=== PATIENT | male | born 1965 | race African-American/Black ===

== ENCOUNTER 2019-10-22 22:43 | Inpatient (IN) | payer MEDICARE, OTHER ==
[~2019-10-22] VITALS: Ht 180.3 cm; Wt 81.2 kg
[2019-10-22 23:15] VITALS: BP 157/88
--- NOTE | 2019-10-22 23:15 | NUR ---
RN NOTES RECEIVED PT. FROM [facility] DIRECT ADMIT, A/OX3, C/O OF RIGHT SIDED WEAKNESS. ASKED THE PATIENT TO RAISE HIS RIGHT ARM AND PATIENT CAN RAISE IT, NOT IN DISTRESS, DENIES PAIN, PATIENT CAN COMPREHEND BUT IT TAKES TIME TO ANSWER TO ANSWER THE QUESTIONS. BED IN LOW POSITION, CALL LIGHT WITHIN REACH, [id number], CONTINUE TO MONITOR
[2019-10-22 23:30] VITALS: BP 157/77
--- NOTE | 2019-10-23 | NUR ---
RN NOTES INFORMED DR. FLORES THAT PT. FROM [facility] IS ALREADY HERE AND NEEDS ADMISSION ORDERS
--- NOTE | 2019-10-23 00:30 | NUR ---
RN NOTES DR. FLORES GAVE ADMISSION ORDER, ORDER NOTED AND CARRIED OUT
[2019-10-23] MEDS ORDERED: ACETAMINOPHEN 325 MG TABLET PO PRN (01:00)
[2019-10-23] MEDS ORDERED: DEXTROSE 50%-WATER 50 ML DISP.SYRIN IV PRN (01:00)
[2019-10-23] MEDS ORDERED: ONDANSETRON HCL/PF 4 MG/2 ML VIAL IVP PRN (01:00)
[2019-10-23] MEDS ORDERED: Z GUARD REMEDY 2 OZ OINT TP PRN (01:00)
[2019-10-23] MEDS ORDERED: ZOLPIDEM TARTRATE 5 MG TABLET PO PRN (01:00)
[2019-10-23 03:05] LABS: APPEARANCE,URINE CLEAR (CLEAR); BILIRUBIN,URINE NEGATIVE (NEGATIVE); BLOOD, URINE NEGATIVE Ery/uL (NEGATIVE); COLOR,URINE YELLOW (YELLOW); KETONES,URINE NEGATIVE (NEGATIVE); LEUKOCYTE ESTERASE ,URINE NEGATIVE (NEGATIVE); NITRITE, URINE NEGATIVE (NEGATIVE); PH,URINE 5.5 (5.0-8.0); PROTEIN,URINE TRACE mg/dl (NEGATIVE); UGLUCOSE NEGATIVE (NEGATIVE); UROBILINOGEN,URINE 0.2 EU/dL (0.2)
[2019-10-23 03:14] LABS: BACTERIA,URINE Rare /HPF (None Seen); RBC,URINE 0-2 /HPF (0-2); SQUAMOUS EPITHELIAL CELL,UR Rare /HPF (None Seen); WBC,URINE 0-2 /HPF (0-3)
[2019-10-23] MEDS ORDERED: TAMS-12 PO (03:54)
[2019-10-23] MEDS ORDERED: [UNRECOGNIZED DRUG - CODE] PO (03:54)
[2019-10-23] MEDS ORDERED: CLOP75TA15 PO (03:54)
[2019-10-23] MEDS ORDERED: SERT100T PO (03:54)
[2019-10-23] MEDS ORDERED: CHOL100040 PO (03:54)
[2019-10-23] MEDS ORDERED: ATOR80TA PO (03:54)
[2019-10-23] MEDS ORDERED: GLIP5TAB13 PO (03:54)
[2019-10-23] MEDS ORDERED: AMLO10TA4 PO (03:54)
[2019-10-23] MEDS ORDERED: CHOL100040 (03:54)
[2019-10-23 04:00] VITALS: BP 151/95
[2019-10-23 07:28] LABS: THYROID STIMULATING HORMONE 0.706 uIU/mL (0.358-3.74)
[2019-10-23] MEDS: PANTOPRAZOLE 40 MG TABLET.DR PO SCH (07:30)
[2019-10-23] MEDS: BLOOD SUGAR DIAGNOSTIC 1 EACH STRIP IN SCH ×4 (07:30→22:09)
--- NOTE | 2019-10-23 07:30 | NUR ---
CHECK PROCESSOR NOTES NURSING SWALLOW EVAL DONE WITHOUT S/S OF COMPLICATIONS. PATIENT ALERT AND ORIENTED X4. FOLLOWS COMMANDS. SPEECH SLOW BUT CLEAR.
--- NOTE | 2019-10-23 07:45 | NUR ---
MS RN NOTES RECEIVED PATIENT IN BED ALERT AND AWAKE ORIENTED X4. NO SOB. ON TELEMONITORING SB: 59. PATIENT ABLE TO RESPOND WITH CLEAR SPEECH BUT SLOW. ABLE TO VERBALIZE NEEDS. CALL LIGHT WITHIN REACH. BED IN LOWEST POSITION, LOCKED.
[2019-10-23] MEDS: ASPIRIN EC 81 MG TABLET.DR PO SCH (08:42)
[2019-10-23 09:27] VITALS: BP 156/96
--- NOTE | 2019-10-23 11:44 | NUR ---
GOLF TECHNICIAN NOTES PATIENT OFF UNIT, LEFT FOR MRI VIA GURNEY IN STABLE CONDITION.
--- NOTE | 2019-10-23 12:47 | NUR ---
HOT PLATE PLYWOOD PRESS LABORER NOTES PATIENT RETURNED TO UNIT FROM MRI
[2019-10-23] MEDS: INSULIN REGULAR, HUMAN 100 UNIT/ML 3 ML VIAL SQ PRN ×2 (12:48→17:49)
[2019-10-23] MEDS: SERTRALINE HCL 50 MG TABLET PO SCH (12:50)
[2019-10-23] MEDS: ATORVASTATIN 40 MG TABLET PO SCH (12:51)
[2019-10-23] MEDS: CHOLECALCIFEROL 1,000 UNIT TABLET (VIT D3) PO SCH (12:51)
[2019-10-23] MEDS: AMLODIPINE BESYLATE 10 MG TABLET PO SCH (13:00)
[2019-10-23] MEDS: CLOPIDOGREL BISULFATE 75 MG TABLET PO SCH (13:00)
--- NOTE | 2019-10-23 14:01 | NUR ---
CAROL CONSULT: Rotary Soil Stabilizer Operator conducted a Post Stroke Depression (MPHQ-9) assessment with the pt at bedside. The pt was pleasant, calm, and engaged in the assessment. Per the pt's answers, the pt scored a 0: none-minial. CAROL provided the pt with a resource information packet on empowerment after a stroke. Addendum: 10/23/19 at 1401 by WILLIAM MEDINA guidance services coordinator available for support as needed.
[2019-10-23 16:08] LABS: BASOPHILS % (AUTO) 1.1 % (0.0-2.0); EOSINOPHILS % (AUTO) 5.5 % (0.0-6.0); HEMATOCRIT 34 % (39-51); HEMOGLOBIN 10.9 g/dL (13.5-17.5); LYMPHOCYTES # (AUTO) 1.4 /CMM (0.8-4.8); LYMPHOCYTES % (AUTO) 36.7 % (20.0-44.0); MEAN CORPUSCULAR HGB CONC 32 g/dl (31.0-36.0); MEAN CORPUSCULAR VOLUME 87 fL (80-96); MONOCYTES # (AUTO) 0.3 /CMM (0.1-1.30); MONOCYTES % (AUTO) 8.6 % (2.0-12.0); NEUTROPHILS # (AUTO) 1.9 /CMM (1.8-8.9); NEUTROPHILS % (AUTO) 48.1 % (43.0-81.0); PLATELET COUNT (AUTO) 272 /CMM (150-450); RED BLOOD CELL COUNT(AUTO) 3.96 MIL/uL (4.5-6.0); WHITE BLOOD COUNT (AUTO) 3.9 K/uL (4.3-11.0)
[2019-10-23 16:12] VITALS: BP 136/60
[2019-10-23 16:19] LABS: CALCIUM, SERUM 8.5 mg/dL (8.5-10.1); CREATININE 1.5 mg/dL (0.6-1.3); POTASSIUM 3.4 mmol/L (3.5-5.1)
[2019-10-23] MEDS ORDERED: GADOTERIDOL 279.3 MG/ML VIAL IV ONE (16:28)
--- NOTE | 2019-10-23 19:18 | NUR ---
POUND ATTENDANT NOTES PATIENT RESTING COMFORTABLY IN BED. HOB ELEVATED. NO S/S OF RESPIRATORY DISTRESS. DENIES ANY C/O PAIN NOR DISCOMFORT AT THIS TIME. LEFT ARM # 20 SL INTACT AND PATENT. ABLE TO VERBALIZE NEEDS. SZ PRECAUTIONS OBSERVED. CALL LIGHT WITHIN REACH. IN NO APPARENT DISTRESS.
[2019-10-23 20:00] VITALS: BP 137/87
--- NOTE | 2019-10-23 20:04 | NUR ---
EXPERT WITNESS OPENING NOTES RECEIVED PATIENT IN BED, AWAKE, COOPERATIVE, CONSCIOUS, ELEVATED HEAD OF BED, BREATHING AT ROOM AIR, UNLABORED BREATHING, NO SIGNS OF RESPIRATORY DISTRESS, PJ #20 SL, SIDE RAILS UP.
[2019-10-24] VITALS: BP 154/90
[2019-10-24 04:00] VITALS: BP 145/68
[2019-10-24 06:31] LABS: BASOPHILS # (AUTO) 0.1 /CMM (0.0-0.2); BASOPHILS % (AUTO) 1.4 % (0.0-2.0); EOSINOPHILS % (AUTO) 5.4 % (0.0-6.0); HEMATOCRIT 34 % (39-51); LYMPHOCYTES # (AUTO) 1.8 /CMM (0.8-4.8); LYMPHOCYTES % (AUTO) 43.5 % (20.0-44.0); MEAN CORPUSCULAR HGB CONC 32 g/dl (31.0-36.0); MEAN CORPUSCULAR VOLUME 87 fL (80-96); MONOCYTES # (AUTO) 0.4 /CMM (0.1-1.30); MONOCYTES % (AUTO) 9.4 % (2.0-12.0); NEUTROPHILS # (AUTO) 1.7 /CMM (1.8-8.9); NEUTROPHILS % (AUTO) 40.3 % (43.0-81.0); PLATELET COUNT (AUTO) 251 /CMM (150-450); RED BLOOD CELL COUNT(AUTO) 3.93 MIL/uL (4.5-6.0); WHITE BLOOD COUNT (AUTO) 4.2 K/uL (4.3-11.0)
[2019-10-24] MEDS: BLOOD SUGAR DIAGNOSTIC 1 EACH STRIP IN SCH ×4 (06:33→21:52)
--- NOTE | 2019-10-24 06:46 | NUR ---
SHREDDED FILLER CIGAR MAKER MACHINE CLOSING NOTES ENDORSED PATIENT IN BED, AWAKE, COOPERATIVE, CONSCIOUS, ELEVATED HEAD OF BED, BREATHING AT ROOM AIR, UNLABORED BREATHING, NO SIGNS OF RESPIRATORY DISTRESS, PJ #20 SL, SIDE RAILS UP FOR SAFETY, DUE MEDS GIVEN, TURN AND POSITION EVERY 2 HRS.
[2019-10-24 07:05] LABS: THYROID STIMULATING HORMONE 0.903 uIU/mL (0.358-3.74)
[2019-10-24 07:18] LABS: ALBUMIN 3.3 g/dL (3.4-5.0); BILIRUBIN,TOTAL 0.4 mg/dL (0.2-1.0); CREATININE 1.4 mg/dL (0.6-1.3); MAGNESIUM 1.9 mg/dL (1.8-2.4); PHOSPHORUS 3.2 mg/dL (2.5-4.9); POTASSIUM 3.1 mmol/L (3.5-5.1); TOTAL PROTEIN, SERUM 6.6 g/dL (6.4-8.2)
--- NOTE | 2019-10-24 07:20 | NUR ---
MS RN NOTES RECEIVED PATIENT IN BED ASLEEP, AROUSABLE TO VERBAL AND TACTILE STIMULI. HOB ELEVATED. NO SOB. ON TELEMONITORING SB: [id number]. PJ # 20 SL INTACT AND PATENT. ABLE TO VERBALIZE NEEDS. CALL LIGHT WITHIN REACH. BED IN LOWEST POSITION, LOCKED. BED SIDERAILS UP X2.
--- NOTE | 2019-10-24 07:45 | NUR ---
RANCH HAND SUPERVISOR NOTES ASSISTED PATIENT UP IN BED, BREAKFAST TABLE SET-UP. PATIENT ABLE TO FEED SELF WITHOUT DIFFICULTY. NO SWALLOWING/CHEWING DIFFICULTY OBSERVED DURING MEAL TIME. ASPIRATIONS PRECAUTIONS OBSERVED AT ALL TIMES.
[2019-10-24 08:00] VITALS: BP 168/90
[2019-10-24] MEDS: ASPIRIN EC 81 MG TABLET.DR PO SCH (08:13)
[2019-10-24] MEDS: PANTOPRAZOLE 40 MG TABLET.DR PO SCH (08:13)
[2019-10-24] MEDS: TAMSULOSIN 0.4 MG CAP.SR.24H PO SCH (08:13)
[2019-10-24] MEDS: SERTRALINE HCL 50 MG TABLET PO SCH (08:14)
[2019-10-24] MEDS: ATORVASTATIN 40 MG TABLET PO SCH (08:14)
[2019-10-24] MEDS: CLOPIDOGREL BISULFATE 75 MG TABLET PO SCH (08:14)
[2019-10-24] MEDS: CHOLECALCIFEROL 1,000 UNIT TABLET (VIT D3) PO SCH (08:14)
[2019-10-24] MEDS: AMLODIPINE BESYLATE 10 MG TABLET PO SCH (08:15)
[2019-10-24 09:45] VITALS: BP 139/86
[2019-10-24] MEDS: POTASSIUM CHLORIDE 20 MEQ TAB.PRT.SR PO SCH ×2 (10:13→11:57)
[2019-10-24] MEDS: INSULIN REGULAR, HUMAN 100 UNIT/ML 3 ML VIAL SQ PRN ×3 (12:16→21:51)
[2019-10-24 16:00] VITALS: BP 136/91
[2019-10-24] MEDS ORDERED: ENOXAPARIN SODIUM 40 MG/0.4 ML DISP.SYRIN SQ SCH (17:00)
--- NOTE | 2019-10-24 18:43 | NUR ---
ASSOCIATE MANAGER NOTES PATIENT RESTING COMFORTABLY IN BED WATCHING TV. HOB ELEVATED. NO SOB. DENIES ANY C/O PAIN NOR DISCOMFORT AT THIS TIME. LEFT ARM # 20 SL INTACT AND PATENT. NO CHANGES OBSERVED DURING THE SHIFT. ABLE TO VERBALIZE NEEDS. SZ PRECAUTIONS OBSERVED. CALL LIGHT WITHIN REACH. IN NO APPARENT DISTRESS.
--- NOTE | 2019-10-24 19:51 | NUR ---
MS RN NOTES PATIENT RESTING COMFORTABLY IN BED.NO C/O OF SOB. DENIES ANY C/O PAIN NOR DISCOMFORT AT THIS TIME. PATIENT FOR DISCHARGE. DISCHARGE INSTRUCTIONS AND PACKET GIVEN TO PATIENT. IV ACCES REMOVED WITH CATHETER TIP INTACT. ALL BELONGINGS ACCOUNTED FOR. AMBULATORY WITH STEADY GAIT. IV ACCESS REMOVED WITH CATHETER TIP INTACT. PATIENT LEFT IN STABLE CONDITION. Addendum: 10/24/19 at 1951 by COLIN CAMPBELL RN DOCUMENTATION WRONG ENTRY
[2019-10-24 20:00] VITALS: BP 146/87
[2019-10-24 20:18] LABS: CREATININE, URINE 219.7 MG/DL (30.0-125.0); URINE TOTAL PROTEIN 79.9 mg/dL (0-11.9)
[2019-10-24 20:21] LABS: APPEARANCE,URINE CLEAR (CLEAR); BILIRUBIN,URINE NEGATIVE (NEGATIVE); BLOOD, URINE NEGATIVE Ery/uL (NEGATIVE); COLOR,URINE YELLOW (YELLOW); KETONES,URINE NEGATIVE (NEGATIVE); LEUKOCYTE ESTERASE ,URINE NEGATIVE (NEGATIVE); NITRITE, URINE NEGATIVE (NEGATIVE); PH,URINE 5.5 (5.0-8.0); PROTEIN,URINE 30 mg/dl (NEGATIVE); UGLUCOSE NEGATIVE (NEGATIVE)
[2019-10-24 20:28] LABS: BACTERIA,URINE Few /HPF (None Seen); EOSINOPHIL,URINE None Seen; FINE GRANULAR CASTS,URINE 0-2 /LPF (None Seen); RBC,URINE 0-2 /HPF (0-2); SQUAMOUS EPITHELIAL CELL,UR Few /HPF (None Seen); WBC,URINE 0-2 /HPF (0-3)
--- NOTE | 2019-10-25 05:28 | NUR ---
MS RN CLOSING NOTES: PATIENT IN BED, AWAKE, A/O X4. NO COMPLAIN OF PAIN. NO SOB NOTED. CALL LIGHT WITHIN REACH. BED ALARM ON. HOB AT 35 DEGREES AT ALL TIMES. RESTED THROUGHOUT THE NIGHT.
[2019-10-25] MEDS: BLOOD SUGAR DIAGNOSTIC 1 EACH STRIP IN SCH ×3 (06:36→17:25)
--- NOTE | 2019-10-25 06:36 | NUR ---
BLOOD SUGAR TODAY=85.
[2019-10-25 06:55] LABS: EOSINOPHILS % (AUTO) 4.4 % (0.0-6.0); HEMATOCRIT 33 % (39-51); HEMOGLOBIN 10.6 g/dL (13.5-17.5); LYMPHOCYTES # (AUTO) 1.7 /CMM (0.8-4.8); LYMPHOCYTES % (AUTO) 39.3 % (20.0-44.0); MEAN CORPUSCULAR HGB CONC 32 g/dl (31.0-36.0); MEAN CORPUSCULAR VOLUME 87 fL (80-96); MONOCYTES # (AUTO) 0.4 /CMM (0.1-1.30); NEUTROPHILS # (AUTO) 1.9 /CMM (1.8-8.9); NEUTROPHILS % (AUTO) 46.3 % (43.0-81.0); PLATELET COUNT (AUTO) 252 /CMM (150-450); RED BLOOD CELL COUNT(AUTO) 3.83 MIL/uL (4.5-6.0); WHITE BLOOD COUNT (AUTO) 4.2 K/uL (4.3-11.0)
[2019-10-25 07:00] LABS: ALBUMIN 3.2 g/dL (3.4-5.0); BILIRUBIN,TOTAL 0.3 mg/dL (0.2-1.0); CALCIUM, SERUM 8.6 mg/dL (8.5-10.1); CREATININE 1.5 mg/dL (0.6-1.3); MAGNESIUM 1.8 mg/dL (1.8-2.4); PHOSPHORUS 3.5 mg/dL (2.5-4.9); POTASSIUM 3.4 mmol/L (3.5-5.1); TOTAL PROTEIN, SERUM 6.4 g/dL (6.4-8.2)
--- NOTE | 2019-10-25 07:30 | NUR ---
RN OPEN NOTES PATIENT IS IN BED SLEEPING WITH NO SIGNS OF DISTRESS IN ROOM AIR. IV LEFT ARM #20G SL INTACT. BED IS IN LOW POSITION AND LOCKED WITH AUTO OVERHAULER RAILS X 2. CALL LIGHT IS WITHIN REACH. FOR SAFETY WILL CONTINUE TO MONITOR.
[2019-10-25 08:00] VITALS: BP 127/75
[2019-10-25] MEDS: CLOPIDOGREL BISULFATE 75 MG TABLET PO SCH (09:14)
[2019-10-25] MEDS: AMLODIPINE BESYLATE 10 MG TABLET PO SCH (09:14)
[2019-10-25] MEDS: TAMSULOSIN 0.4 MG CAP.SR.24H PO SCH (09:14)
[2019-10-25] MEDS: SERTRALINE HCL 50 MG TABLET PO SCH (09:15)
[2019-10-25] MEDS: ASPIRIN EC 81 MG TABLET.DR PO SCH (09:15)
[2019-10-25] MEDS: ATORVASTATIN 40 MG TABLET PO SCH (09:15)
[2019-10-25] MEDS: CHOLECALCIFEROL 1,000 UNIT TABLET (VIT D3) PO SCH (09:16)
[2019-10-25] MEDS: PANTOPRAZOLE 40 MG TABLET.DR PO SCH (09:18)
[2019-10-25] MEDS ORDERED: POTASSIUM CHLORIDE 10 MEQ TABLET.SA PO ONE (10:30)
--- NOTE | 2019-10-25 12:45 | NUR ---
RN NOTES PATIENT WAS HAVING DIFFICULTY SWALLOWING SOFT MECHANICAL FOR LUNCH. DR. HELLER WAS INFORMED AND ORDERED A CHANGE OF CARDIAC DIET TO PUREED. NOTED AND CARRIED OUT.
[2019-10-25] MEDS ORDERED: ASPI-1152 PO (15:29)
[2019-10-25 16:00] VITALS: BP 144/96
--- NOTE | 2019-10-25 16:59 | NUR ---
RN MS NOTES CANCEL CTA BRAIN PER DR. TAYLOR, SAID HE WILL ORDER IT AT [facility].
--- NOTE | 2019-10-25 19:21 | NUR ---
RN CLOSED NOTES PATIENT IS A/OX4. WITH NO SIGNS OF DISTRESS IN ROOM AIR. IV LEFT ARM #20G SL INTACT. SCHEDULED MEDICATIONS WERE GIVEN AND TOLERATED WELL. PATIENT IS READY FOR PICK BY AMBULANCE, GAVE PATIENT EDUCATION OF DISCHARGE INSTRUCTIONS AND MEDICATIONS. CALLED [facility] TO GIVE REPORT TO NURSEROMI. AMBULANCE PICK IS AT 1930. CLEAN UP SUPERVISOR NURSE IS AWARE. BED IS IN LOW POSITION AND LOCKED WITH SIDE RAILS UP X 2 FOR SAFETY. CALL LIGHT IS WITHIN REACH. WILL ENDORSE TO THE NEXT SHIFT.
--- NOTE | 2019-10-25 19:55 | NUR ---
MS GENERAL DENTIST NOTES DISCHARGE PATIENT ALERT AND ORIENTED X 3. AFEBRILE WITH S/S OF DISTRESS OBSERVED. LEFT UPPER ARM IV LINE REMOVED. VITAL SIGNS TAKEN. PICKED UP BY [facility] WITH 2EMT'S. DISCHARGE PACKET GIVEN TO EMT. TO TRANSFER TO [facility] REPORT GIVEN TO LENNIE SCOTT BY MORNING SHIFT NURSE. BELONGINGS GIVEN TO EMT.
[2019-10-25 20:22] VITALS: BP 152/98
== END 2019-10-25 19:55 | DRG 56 ==
LOC: TELE 22:43 → MED 10-24 08:39
PROVIDERS: ADMIT Nurse Practitioner Acute Care; ATTEND Student in an Organized Health Care Education/Training Program
DX: I69.351 Hemiplegia and hemiparesis following cerebral infarction affecting right dominant side (principal); N17.0 Acute kidney failure with tubular necrosis; E78.5 Hyperlipidemia, unspecified; F32.9 Major depressive disorder, single episode, unspecified; N40.0 Benign prostatic hyperplasia without lower urinary tract symptoms; J32.0 Chronic maxillary sinusitis; Z87.891 Personal history of nicotine dependence; I12.9 Hypertensive chronic kidney disease with stage 1 through stage 4 chronic kidney disease, or unspecified chronic kidney disease; E11.22 Type 2 diabetes mellitus with diabetic chronic kidney disease; N18.9 Chronic kidney disease, unspecified
CPT/HCPCS: 36415; 70553-TC; 76770-TC; 80048-TC; 80053-TC; 80061-TC; 81000-TC; 82570-TC; 82962-TC; 83540-TC; 83735-TC; 84100-TC; 84155-TC; 84300-TC; 84443-TC; 85025-TC; 87081-TC; 92521; 92611-TC; 93307-TC; 97110-TC; 97116-TC; 97530-TC; 97535-TC; A9579; G0378; J1650; J1815